=== PATIENT | female | born 1985 | race Caucasian/White ===

== ENCOUNTER 2018-04-01 12:35 | Emergency (ER) | payer OTHER ==
[~2018-04-01] VITALS: Ht 154.9 cm; Wt 59.0 kg
[~2018-04-01 12:35] MED LIST: KEFLEX500 MG PO; NORCO 10-325 T1 EACH PO
[2018-04-01] MEDS ORDERED: NASAL DECONGEST30 M2 PO (15:02)
[2018-04-01] MEDS ORDERED: AMOXICILLIN500 MG PO (15:02)
== END 2018-04-01 15:09 | disposition home or self-care (01) ==
LOC: ED 12:35
DX: J32.9 Chronic sinusitis, unspecified (principal); F17.200 Nicotine dependence, unspecified, uncomplicated; Z88.5 Allergy status to narcotic agent
CPT/HCPCS: 99283

== ENCOUNTER → 2020-10-12 | Emergency (ER) | payer OTHER ==
[~2020-10-12] VITALS: Ht 154.9 cm; Wt 59.0 kg
[~2020-10-12] MED LIST changes: +AMOXICILLIN500 MG PO; +CYCLOBENZAPRINE10 MG PO; +CYMBALTA30 MG PO; +GABAPENTIN300 MG PO; +NASAL DECONGEST30 M2 PO; +OXYCODONE HCL5 M1 PO
== END ==
LOC: ED 03:03
DX: S82.142A Displaced bicondylar fracture of left tibia, initial encounter for closed fracture (principal); W10.9XXA Fall (on) (from) unspecified stairs and steps, initial encounter; F17.200 Nicotine dependence, unspecified, uncomplicated; Z88.5 Allergy status to narcotic agent; Z20.822 Contact with and (suspected) exposure to COVID-19
CPT/HCPCS: 73560; 73706; 80048; 84703; 85007; 85025; 85610; 85730; 86850; 86900; 86901; 96374; 96376; 99285-25; C9803; J3010; U0003

== ENCOUNTER 2020-10-26 08:52 | Day surgery (SDC) | payer OTHER ==
[~2020-10-26] VITALS: Ht 154.9 cm; Wt 59.9 kg
[~2020-10-26 08:52] MED LIST changes: -CYMBALTA30 MG PO
--- NOTE | 2020-10-26 10:01 | NUR ---
MEDICATED FOR PAIN PER EXPERIMENTAL [employer]ARD [employer] MECHANIC VERBAL ORDER.
[2020-10-26] MEDS ORDERED: OXYCODONE HCL5 M1 PO (13:16)
[2020-10-26] MEDS ORDERED: CYMBALTA30 MG PO (13:17)
--- NOTE | 2020-10-26 13:49 | NUR ---
10/26/20 1349 Sheets,Muriel 1316 PT ARRIVED TO PACU ON 6L VIA MASK, VSS. 1320 PT WAKES AND STARTS CRYING. PT REPORTS "IT HURTS." 1335 SECOND DIRECTOR OF FOOD AND BEVERAGE SERVICES AT BEDSIDE DOING A BLOCK. PT TRUNED TO LEFT SIDE AND MEDICATION GIVEN BY DIRECTOR OF FOOD AND BEVERAGE SERVICES. O2 MASK REMOVED. PT CONTINUES TO CRY OFF AND ON. VSS.
--- NOTE | 2020-10-26 14:27 | NUR ---
CRYO CUFF TO LEFT KNEE ON ENTRY TO DS. LEFT KNEE ALSO ELEVATED. PT DENIES NAUSEA BUT BEGINS CRYING SAYING, "I DON'T WANT TO PUKE". REPORTS 3/10 LEFT KNEE PAIN BUT 8/10 LEFT HIP PAIN. DUCTFIXING PLUMBER AWARE. PT APPEARS TO FALL ASLEEP WITHOUT STIMULATION.
--- NOTE | 2020-10-26 15:45 | NUR ---
1510: PT WITH CALL FOR THIS RN. REPORTS URGE TO VOID. PT APPEARS FRUSTRATED, THRASHING IN BED AND BECOMES TEARY. STATES "I JUST WANT TO GO HOME AND SEE MY KIDS" COMFORTED AND TISSUES PROVIDED. DANGLES AT THE BEDSIDE, ITA WELL. DENIES DIZZINESS AND SOB. AMBULATES TO BR USING CRUTCHES WITH STANDBY ASSISTANCE FROM THIS RN. SUCCESSFUL POST OP VOID. AMBULATES BACK TO ROOM 2 AND DRESSES SELF INDEPENDENTLY FOR DC. VSS, RESP EVEN AND UNLABORED 1540: D/C INSTRUCTIONS PROVIDED AND DISCUSSED ORDERED. PT VERBALIZES UNDERSTANDING AND DENIES QUESTIONS AND CONCERNS. WHEELED OFF OF UNIT BY THIS RN. TRANSFERS INTO VEHICLE INDEPENDENTLY. NO PHYSICAL S/S OF DISTRESS AT THIS TIME
--- NOTE | 2020-10-26 16:39 | EKG ---
[facility] [address] [facility] [place] [address] Signed Sinus rhythm with frequent premature ventricular complexes Otherwise normal ECG No previous ECGs available Confirmed by NAVNEET HAWLEY MD ([id number]) on 10/26/2020 4:39:03 PM Electronically Signed By: NAVNEET HAWLEY MD 10/26/20 1639 PATIENT NAME: JENNIFFER BENAVIDEZ Electrocardiogram DATE OF : 81 PHYSICIAN: NAVNEET HAWLEY MD REPORT #: [id number] REPORT IS CONFIDENTIAL AND NOT TO BE RELEASED WITHOUT AUTHORIZATION
--- NOTE | 2020-10-28 16:21 | OR ---
[facility] [address] [place], [place] [address] Signed DATE OF OPERATION: 10/26/2020 SURGEON: Dave Hernandez MD PREOPERATIVE DIAGNOSIS: Schatzker II left tibial plateau fracture. POSTOPERATIVE DIAGNOSIS: Schatzker II left tibial plateau fracture. PROCEDURE PERFORMED: Open reduction and internal fixation of left proximal tibia. PROFILE GRINDER: Mirna Corbin PA-C. Mirna was present and critical for all portions of procedure. ANESTHESIA: General. BLOOD LOSS: None. TOURNIQUET TIME: 75 minutes. IMPLANTS: Chin and Nephew 3.5 proximal tibial locking plate with 7 screws. BRIEF HISTORY: Jenniffer is a 35-year-old female who suffered a ground level fall of some sort. She is a little unclear of the actual etiology. She did have a split depression fracture of the lateral tibial plateau. Risks and benefits of operative treatment were discussed with her. She was transferred to [place] for a suspected arterial injury which turned out to be not true and they failed to fix the fracture, so she came back home. DESCRIPTION OF PROCEDURE: Once consent was obtained, she was taken to the operating room. After adequate anesthesia she was placed on operating table. All downside pressure points well padded. The left lower extremity was placed in a proximal thigh tourniquet and prepped and Electronically Signed By: DAVE HERNANDEZ MD 10/28/20 1621 PATIENT NAME: JENNIFFER BENAVIDEZ OPERATIVE REPORT DATE OF : 81 REPORT #: [id number] PHYSICIAN: DAVE HERNANDEZ MD PCP: NO PRIMARY CARE PHYSICIAN REPORT IS CONFIDENTIAL AND NOT TO BE RELEASED WITHOUT AUTHORIZATION [facility] [address] [place], [place] [address] Signed draped in a standard sterile fashion. The leg was exsanguinated using Esmarch bandage. Tourniquet inflated to 250 mmHg. Standard anterior lateral approach was taken through skin and subcutaneous tissue. Full-thickness flaps were developed. The muscle was then incised along the proximal lateral tibia and taken off. This was extended into a lateral arthrotomy. Blood was evacuated from the knee and irrigation was used to cleanse it. Using a lighted Headley sucker we were able to evaluate the fracture. The posterior half was relatively intact. The anterior half was split into three fragments. These were relatively large fragments. The anterior split was then developed and mobilized to allow easy access to the two main fragments. These were elevated after being teased from the surrounding bone. They were then held in position using a small K-wire and the lateral tibial cortex was then folded back into position and held with a clamp. This was then checked under direct visualization, which showed good reduction of the articular surface. Image intensifier confirmed this. We then pinned the lateral cortex back into position under again reduction with a clamp. Once this was accomplished, the low-profile plate was placed over the lateral tibia and held in a central position. Once this was accomplished, the image intensifier was brought in and the plate was noted to fit well. A single screw was placed distally to hold the plate in position and then the three periarticular screws were drilled and three locking screws were placed. The distal screw holes were filled as needed and checked using image intensifier and found to be in good position. Once this was accomplished, the wound was copiously irrigated with normal saline. There was a small void underneath the plateau and this was filled with OsteoSet. Once that was accomplished, the flaps were closed. The muscular flap was closed using #1 Vicryl and #0 Stratafix. The skin flap was closed using 2-0 Stratafix, and mary jane. Wound was dressed with Allevyn dressing, ABD, and Micah wrap. She tolerated the procedure well. All sponge, needle, and instrument counts were correct. Dave Hernandez MD BA/MODL /[id number] Copies: Electronically Signed By: DAVE HERNANDEZ MD 10/28/20 1621 PATIENT NAME: JENNIFFER BENAVIDEZ OPERATIVE REPORT DATE OF : 81 REPORT #: [id number] PHYSICIAN: DAVE HERNANDEZ MD PCP: NO PRIMARY CARE PHYSICIAN REPORT IS CONFIDENTIAL AND NOT TO BE RELEASED WITHOUT AUTHORIZATION [facility] [address] [place] [id number] Signed ~ Electronically Signed By: DAVE HERNANDEZ MD 10/28/20 1629 PATIENT NAME: JENNIFFER BENAVIDEZ OPERATIVE REPORT DATE OF : [birth year] REPORT #: [id number] PHYSICIAN: DAVE HERNANDEZ MD PCP: NO PRIMARY CARE PHYSICIAN REPORT IS CONFIDENTIAL AND NOT TO BE RELEASED WITHOUT AUTHORIZATION
== END 2020-10-26 15:39 | disposition home or self-care (01) ==
LOC: OPS 08:52 → DS 08:54 → OPS 10:45 → DS 12:45 → OPS 15:39
PROVIDERS: ATTEND Specialist
PROC: 0QSH04Z Reposition Left Tibia with Internal Fixation Device, Open Approach (ICD-10-PCS; principal; 2020-10-26 12:45)
DX: S82.122A Displaced fracture of lateral condyle of left tibia, initial encounter for closed fracture (principal); G89.18 Other acute postprocedural pain; W01.190A Fall on same level from slipping, tripping and stumbling with subsequent striking against furniture, initial encounter; Y92.009 Unspecified place in unspecified non-institutional (private) residence as the place of occurrence of the external cause; Z72.0 Tobacco use
CPT/HCPCS: 01392; 64445; 64447; 64448; 73560; 73562; 76942; 93005; 93010; 99406; A9270; C1713; J0690; J1100; J1170; J1885; J2001; J2250; J2405; J2704; J2795; J3010; J7121

== ENCOUNTER 2021-03-19 08:15 | Emergency (ER) | payer OTHER ==
[~2021-03-19] VITALS: Ht 167.6 cm; Wt 65.0 kg
[~2021-03-19 08:15] MED LIST changes: +CYMBALTA30 MG PO
[2021-03-19] MEDS ORDERED: ULTRAM50 MG PO (09:34)
--- NOTE | 2021-03-21 16:28 | EKG ---
[facility] [address] [facility] [place] [address] Signed Normal sinus rhythm Possible Left atrial enlargement Nonspecific ST abnormality Abnormal ECG When compared with ECG of 19-MAR-2021 08:25, (Unconfirmed) QRS axis shifted left Borderline criteria for Inferior infarct are no longer present Confirmed by NIKOLAI OSBORN DO ([id number]) on 03/21/2021 4:27:58 PM Electronically Signed By: NIKOLAI OSBORN DO 03/21/21 1628 PATIENT NAME: JENNIFFER BENAVIDEZ Electrocardiogram DATE OF : 81 PHYSICIAN: NIKOLAI OSBORN DO REPORT #: [id number] REPORT IS CONFIDENTIAL AND NOT TO BE RELEASED WITHOUT AUTHORIZATION
== END 2021-03-19 18:52 | disposition short-term general hospital (02) ==
LOC: ED 08:15 → EDBD 08:16 → ED 08:16
DX: I49.01 Ventricular fibrillation (principal); Z88.5 Allergy status to narcotic agent; Z20.822 Contact with and (suspected) exposure to COVID-19
CPT/HCPCS: 31500; 36600; 51702; 70450; 71045; 71260; 74177; 80053; 81001; 82803; 83605; 84484; 84703; 85025; 93005; 93010; 94002; 99291; 99292; C9803; G0480; J0282; J2704; J3010; J7030; Q9967; U0003

== ENCOUNTER 2023-11-16 08:21 | Emergency (ER) | payer OTHER ==
[~2023-11-16] VITALS: Ht 167.6 cm; Wt 57.0 kg
[~2023-11-16 08:21] MED LIST changes: +ULTRAM50 MG PO
[2023-11-16] MEDS ORDERED: NADOLOL20 MG PO (08:33)
[2023-11-16 08:42] LABS: BASOPHILS 0.7 % (0-2); EOSINOPHILS 0.6 % (0-6); HEMATOCRIT 46.4 % (35.0-50.0); HEMOGLOBIN 15.9 g/dL (12.0-18.0); LYMPHOCYTES 22.4 % (24-44); MCH 32.7 (27-36); MCHC 34.4 g/dl (30-36); MONOCYTES 5.1 % (0-12); NEUTROPHILS 71.2 % (39-80); PLATELET COUNT 183 K/uL (140-440); RBC 4.88 M/ul (4.3-5.7); RDW 13.4 (10.5-15.0)
[2023-11-16 09:00] LABS: ALBUMIN 3.7 g/dL (3.4-5.0); ALKALINE PHOSPHATASE 54 U/L (46-116); ALT (SGPT) 28 U/L (14-59); AST (SGOT) 18 U/L (15-37); BILIRUBIN, TOTAL 0.8 ng/dL (0.2-1.0); BUN/CREATININE RATIO 15.66 (6.0-28.6); CALCIUM 8.7 mg/dL (8.5-10.1); CARBON DIOXIDE 24 mmol/L (21-32); CHLORIDE 104 mmol/L (98-107); CREATININE, SERUM 0.83 mg/dL (0.55-1.02); GLOMERULAR FILTRATION RATE,EST 91 mL/min (>60); MAGNESIUM 1.9 mg/dL (1.8-2.4); PROTEIN, TOTAL 7.4 g/dL (6.4-8.2); UREA NITROGEN 13 mg/dL (7-18)
[2023-11-16] MEDS ORDERED: ATIVAN1 MG PO (09:23)
[2023-11-16] MEDS ORDERED: LORazepam 0.5 MG TAB PO ONE (09:30)
[2023-11-16 09:31] VITALS: BP 122/78
--- NOTE | 2023-11-17 16:09 | EKG ---
[facility] [address] [facility] [place] [address] Signed Sinus rhythm with sinus arrhythmia with frequent premature ventricular complexes Otherwise normal ECG When compared with ECG of 19-MAR-2021 08:28, premature ventricular complexes are now present ST no longer depressed in Lateral leads Confirmed by Hannah Lara MD ([id number]) on 11/17/2023 4:09:15 PM Electronically Signed By: HANNAH LARA MD 11/17/23 1609 PATIENT NAME: JENNIFFER BENAVIDEZ Electrocardiogram DATE OF : [birth year] PHYSICIAN: HANNAH LARA MD REPORT #: [id number] REPORT IS CONFIDENTIAL AND NOT TO BE RELEASED WITHOUT AUTHORIZATION
== END 2023-11-16 09:31 | disposition home or self-care (01) ==
LOC: ED 08:21
PROVIDERS: Emergency Medicine
DX: F41.9 Anxiety disorder, unspecified (principal); R07.89 Other chest pain; F17.200 Nicotine dependence, unspecified, uncomplicated; Z79.899 Other long term (current) drug therapy; Z88.5 Allergy status to narcotic agent
CPT/HCPCS: 36415; 80053; 83735; 84484; 85025; 93005; 93010; 99285

== ENCOUNTER 2024-06-20 18:38 | Emergency (ER) | payer OTHER ==
[~2024-06-20] VITALS: Ht 167.6 cm; Wt 61.2 kg
[~2024-06-20 18:38] MED LIST changes: +ATIVAN1 MG PO; +NADOLOL20 MG PO
[2024-06-20 18:57] LABS: BASOPHILS 0.4 % (0-2); EOSINOPHILS 0.9 % (0-6); HEMATOCRIT 39.9 % (35.0-50.0); HEMOGLOBIN 13.8 g/dL (12.0-18.0); LYMPHOCYTES 22.8 % (24-44); MCH 32.4 (27-36); MCHC 34.7 g/dl (30-36); MCV 93.4 fl (81-99); MONOCYTES 5.2 % (0-12); NEUTROPHILS 70.7 % (39-80); PLATELET COUNT 188 K/uL (140-440); RBC 4.27 M/ul (4.3-5.7); RDW 13.6 (10.5-15.0)
[2024-06-20 19:15] LABS: ALBUMIN 3.4 g/dL (3.4-5.0); ALBUMIN/GLOBULIN RATIO 0.97 (1.1-2.4); ANION GAP 11.3 (7-21); BILIRUBIN, TOTAL 0.3 mg/dL (0.2-1.0); BUN/CREATININE RATIO 16.21 (6.0-28.6); CALCIUM 8.7 mg/dL (8.5-10.1); CREATININE, SERUM 0.74 mg/dL (0.55-1.02); MAGNESIUM 1.8 mg/dL (1.8-2.4); POTASSIUM 3.3 mmol/L (3.5-5.1); PROTEIN, TOTAL 6.9 g/dL (6.4-8.2)
[2024-06-20] MEDS ORDERED: CYCLOBENZAPRINE10 MG PO (21:02)
[2024-06-20 21:11] VITALS: BP 94/62
--- NOTE | 2024-06-22 14:36 | EKG ---
[facility] [address] [facility] [place] [address] Signed Sinus rhythm with sinus arrhythmia with frequent premature ventricular complexes Otherwise normal ECG When compared with ECG of 16-NOV-2023 08:29, No significant change was found Confirmed by Joao Cobos MD () on 06/22/2024 2:36:07 PM Electronically Signed By: JOAO COBOS MD 06/22/24 1436 PATIENT NAME: JENNIFFER BENAVIDEZ Electrocardiogram DATE OF : 81 PHYSICIAN: JOAO COBOS MD REPORT #: [id number] REPORT IS CONFIDENTIAL AND NOT TO BE RELEASED WITHOUT AUTHORIZATION
== END 2024-06-20 21:11 | disposition home or self-care (01) ==
LOC: ED 18:38
PROVIDERS: Emergency Medicine
DX: R07.89 Other chest pain (principal); I25.2 Old myocardial infarction; F17.200 Nicotine dependence, unspecified, uncomplicated; Z95.810 Presence of automatic (implantable) cardiac defibrillator; Z88.5 Allergy status to narcotic agent; Z79.899 Other long term (current) drug therapy
CPT/HCPCS: 36415; 71045; 80053; 83735; 84484; 85025; 93005; 93010; 99285-25